=== PATIENT | male | born 1985 ===

== ENCOUNTER 2016-12-29 10:42 | Emergency (ER) | payer MEDICAID, OTHER ==
[2016-12-29 10:58] VITALS: BP 142/80; PULSE 86; RESP 18; TEMP 99; O2SAT 97
== END 2016-12-29 11:55 | disposition home or self-care (01) ==
LOC: H.ER 10:42
DX: G56.00 Carpal tunnel syndrome, unspecified upper limb (principal); R21 Rash and other nonspecific skin eruption